=== PATIENT | male | born 1990 | race Caucasian/White ===

== ENCOUNTER → 2017-12-24 | Outpatient (CLI) | payer OTHER | LOC: M RAD 09:35 | DX: M79.604 Pain in right leg (principal) ==

== ENCOUNTER 2018-07-14 13:30 | Inpatient (IN) | payer OTHER ==
[~2018-07-14] VITALS: Ht 182.9 cm; Wt 113.6 kg
[2018-07-14] MEDS: MULTIVITAMINS/MINERALS THERAP 1 TAB PO SCH ×2 (09:00→20:55)
[2018-07-14] MEDS ORDERED: TRAZ-186 PO (14:12)
[2018-07-14] MEDS ORDERED: LORazepam 2 MG/ML VIAL (J2060) IV STA (14:12)
--- NOTE | 2018-07-14 14:29 | REP ---
Portable chest, 02:18 p.m., single frontal view: There are no comparisons. The lung muller are clear. The cardiac size is normal. The daryl, mediastinum, and skeletal structures are unremarkable. Impression: Negative portable chest. Electronically Signed by Jean Morris MD 07/14/2018 02:21 P
--- NOTE | 2018-07-14 14:29 | REP ---
CT of the brain without IV contrast for seizure: There are no comparisons. There is no subdural or epidural hematoma. There is no hemorrhage. There is no edema, mass effect or midline shift. Ventricles are normal size and midline. Stripe is unremarkable. The visualized paranasal sinuses are unremarkable. There is opacification of the left mastoids inferiorly, nonspecific in the absence of prior films, possibly congenital variant. There are no air-fluid levels in the mastoid air cells. Impression: There is no hemorrhage, acute infarct or mass. 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 There are no air-fluid levels. Correlate clinically. Electronically Signed by Jean Morris MD 07/14/2018 02:20 P
[2018-07-14 14:32] LABS: BASO # 0.1 10^3/uL (0.0-0.2); EOS # 0.2 10^3/uL (0.0-0.50); EOS % 1.7 % (0.0-3.0); HEMATOCRIT 43.4 % (42.0-52.0); HEMOGLOBIN 15.6 g/dl (13.5-17.5); LYMPH % 42.3 % (24.0-44.0); MEAN CORPUSCULAR HEMOGLOBIN 32.9 pg (27.0-33.0); MEAN CORPUSCULAR HGB CONC 35.9 g/dl (32.0-36.5); MEAN CORPUSCULAR VOLUME 91.6 fl (80.0-96.0); MONO % 10.2 % (0.0-5.0); NEUTROPHILS # 4.1 10^3/uL (1.8-7.7); NEUTROPHILS % 43.1 % (36.0-66.0); PLATELET COUNT, AUTOMATED 242 10^3/uL (150-450); RED BLOOD COUNT 4.74 10^6/uL (4.30-6.10); WHITE BLOOD COUNT 9.5 10^3/uL (4.0-10.0)
[2018-07-14 14:36] LABS: INR 1.07
[2018-07-14 14:37] LABS: PARTIAL THROMBOPLASTIN TIME 24.1 SECONDS (25.4-37.6)
[2018-07-14 14:45] LABS: ALT/SGPT 213 U/L (12-78); BILIRUBIN,DIRECT 0.9 MG/DL (0.0-0.2); BILIRUBIN,TOTAL 2.2 MG/DL (0.2-1.0); BLOOD UREA NITROGEN 12 MG/DL (7-18); CALCIUM LEVEL 9.5 MG/DL (8.5-10.1); CARBON DIOXIDE LEVEL 13 MEQ/L (21-32); CHLORIDE LEVEL 97 MEQ/L (98-107); CPK CREATINE PHOSPHOKINASE 233 U/L (39-308); CREATININE FOR GFR 2.47 MG/DL (0.70-1.30); ETHYL ALCOHOL (ETHANOL) < 0.003 % (0.000-0.010); GLOMERULAR FILTRATION RATE 33.1 (>60); GLUCOSE, FASTING 139 MG/DL (70-100); MB/CK RELATIVE INDEX 1.12 (< OR =4); POTASSIUM SERUM 3.9 MEQ/L (3.5-5.1); SODIUM LEVEL 133 MEQ/L (136-145); TOTAL PROTEIN 8.3 GM/DL (6.4-8.2); TROPONIN I < 0.02 NG/ML (< 0.10)
[2018-07-14 15:05] LABS: LIPASE 116 U/L (73-393)
[2018-07-14 15:27] LABS: AMPHETAMINES LEVEL URINE NEGATIVE (NEGATIVE); BARBITURATES URINE NEGATIVE (NEGATIVE); BENZODIAZEPINES URINE NEGATIVE (NEGATIVE); CANNABINOIDS URINE NEGATIVE (NEGATIVE); COCAINE METABOLITE URINE NEGATIVE (NEGATIVE); METHADONE URINE NEGATIVE (NEGATIVE); OPIATES URINE NEGATIVE (NEGATIVE); PHENCYCLIDINE URINE NEGATIVE (NEGATIVE)
--- NOTE | 2018-07-14 16:05 | ECGEPIP ---
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
[2018-07-14] MEDS ORDERED: NS 1,000 ML IV ONE (16:30)
--- NOTE | 2018-07-14 17:22 | REP ---
Abdominal right upper ultrasound for elevated liver function tests: There is a negative Hearn's sign. There is no cholelithiasis, gallbladder wall thickening or pericholecystic fluid. There is no intrahepatic or extrahepatic biliary duct dilatation, the common duct measures 5.9 mm in diameter. The hepatic parenchyma is echogenic compatible with hepato steatosis. There are no hepatic masses. The visualized pancreas is unremarkable. Much of the pancreas is obscured by bowel gas and body habitus. There is no right renal calculus, hydronephrosis or solid or cystic mass. The right kidney is normal size measuring 12.1 x 5.4 x 5.9 cm. There is no right upper quadrant free fluid. Impression: Hepato steatosis. Pancreas is obscured by bowel gas and body habitus. Otherwise, negative right upper quadrant ultrasound. Electronically Signed by Jean Morris MD 07/14/2018 05:13 P
[2018-07-14] MEDS ORDERED: MULTIVITAMINS/MINERALS THERAP 1 TAB PO ONE (17:45)
[2018-07-14] MEDS ORDERED: LORazepam 2 MG TAB PO PRN (17:45)
[2018-07-14] MEDS ORDERED: FOLIC ACID 1 MG TAB PO ONE (17:45)
[2018-07-14] MEDS ORDERED: THIAMINE 100 MG TAB PO ONE (17:45)
[2018-07-14] MEDS ORDERED: OXAZEPAM 10 MG CAP PO PRN (17:45)
--- NOTE | 2018-07-14 18:15 | HPEPDOC ---
General Date of Admission Jul 14, 2018 at 17:39 Chief Complaint The patient is a 27-year-old male who presented to the ER after he collapsed wh ile in the field doing work in the [employer]. History of Present Illness Patient is a 27-year-old male with no significant past medical history who presented to the ER after he collapsed in the field. 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 Patient reported at the work was not strenuous. . He denied any complaints prior to collapsing. Patient noted that he collapsed while outside and woke up in the ambulance. . He noted that there was an ambulance that was nearby already. Patient is unable to quantify how much time he was down. However, he approximates that this could be about 10 seconds. Upon awaking up. Patient did not have any incontinence of stool or urine. Denied any tongue biting. Denied any head trauma. He did report feeling slightly fatigued but denied any dizziness or any lightheadedness. Patient denies chest pain, shortness of breath, palpitations or cough. Denies any abdominal pain, constipation, diarrhea or discomfort with urination. Of note, patient has indicated that over the last several days hes been drinking several high energy drinks and has indicated that his urine was almost brown colored. . He subsequently consumed Pedialyte and a gallon of water. Patient denies any significant change in his weight and has noted that his appetite has been fairly decent. Patient has no prior history of any syncopal episodes. . He notes that he does consume alcohol, but only admits to drinking 2-3 beers on the weekend. Denies any other alcohol use, including hard liquor. Home Medications Scheduled PRN Trazodone HCl (Trazodone HCl) 50 Mg Tablet, 1 TAB PO QPM PRN for SLEEP, (Reported) Allergies Coded Allergies: No Known Allergies (Unverified , 07/14/18) Past Medical History Medical History No reported medical problems Patient was recently prescribed trazodone for insomnia; However, has not yet taken any. 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 Review of Systems Other systems 10 point review of systems complete, all negative otherwise stated in HPI Vital Signs - Vitals: BP 158/105, HR 109, RR 18, Sat 97%RA, Temp 97.8F - General: Lying in bed, No acute distress, Speaking in full sentences, AAOx3 - HEENT: NC, AT, PERRLA, EOMI - CVS: Tachycardic but regular, +S1S2 - Lungs: Fair air entry bilaterally, Clear to auscultation, No wheezing / rales / rhonchi - Abdomen: Soft, Non-distended, Non-tender, + Bowel sounds x 4 - Extremities: No lower extremity edema, No calf tenderness - Neuro: No focal motor or sensory deficit - Skin: No visible rashes Laboratory Data Labs 24H Laboratory Tests 2 07/14/18 13:36: Immature Granulocyte % (Auto) 1.7, White Blood Count 9.5, Red Blood Count 4.74, Hemoglobin 15.6, Hematocrit 43.4, Mean Corpuscular Volume 91.6, Mean Corpuscular Hemoglobin 32.9, Mean Corpuscular Hemoglobin Concent 35.9, Red Cell Distribution Width 12.9, Platelet Count 242, Neutrophils (%) (Auto) 43.1, Lymphocytes (%) (Auto) 42.3, Monocytes (%) (Auto) 10.2H, Eosinophils (%) (Auto) 1.7, Basophils (%) (Auto) 1.0, Neutrophils # (Auto) 4.1, Lymphocytes # (Auto) 4.0, Monocytes # (Auto) 1.0H, Eosinophils # (Auto) 0.2, Basophils # (Auto) 0.1, Nucleated Red Blood Cells % (auto) 0.0, Prothrombin Time 14.0, Prothromb Time International Ratio 1.07, Activated Partial Thromboplast Time 24.1L, Anion Gap 23H, Glomerular Filtration Rate 33.1L, Calcium Level 9.5, Aspartate Amino Transf (AST/SGOT) 373H, Alanine Aminotransferase (ALT/SGPT) 213H, Alkaline Phosphatase 133H, Total Bilirubin 2.2H, Direct Bilirubin 0.9H, Total Creatine Kinase 233, Creatine Kinase MB 3.0, Creatine Kinase MB Relative Index 1.12, Troponin I < 0.02, Total Protein 8.3H, Albumin 4.0, Albumin/Globulin Ratio 0.93L, Lipase 116, Thyroid Stimulating Hormone (TSH) 1.710, Ethyl Alcohol Level < 0.003 07/14/18 14:56: Urine Amphetamines Screen NEGATIVE, Urine Benzodiazepines Screen NEGATIVE, Urine Opiates Screen NEGATIVE, Urine Methadone Screen NEGATIVE, Urine Barbiturates Screen NEGATIVE, Urine Phencyclidine Screen NEGATIVE, Urine Cocaine Metabolite Screen NEGATIVE, Urine Cannabinoids Screen NEGATIVE 07/14/18 18:01: CBC/BMP Laboratory Tests 07/14/18 13:36 Red Blood Count 4.74, Mean Corpuscular Volume 91.6, Mean Corpuscular Hemoglobin 32.9, Mean Corpuscular Hemoglobin Concent 35.9, Red Cell Distribution Width 12.9, Neutrophils (%) (Auto) 43.1, Lymphocytes (%) (Auto) 42.3, Monocytes (%) (Auto) 10.2 H, Eosinophils (%) (Auto) 1.7, Basophils (%) (Auto) 1.0, Neutrophils # (Auto) 4.1, Lymphocytes # (Auto) 4.0, Monocytes # (Auto) 1.0 H, Eosinophils # (Auto) 0.2, Basophils # (Auto) 0.1 Plan / VTE VTE Prophylaxis Ordered?: Yes Plan Plan Syncope - possibly 2/2 neurologic etiology; possibly 2/2 vasovagal etiology; possibly 2/2 orthostatic hypotension - Patient was noted to activity outdoors. However, has indicated that this was not strenuous - Has also reported a recent episode of dark-colored urine that he tried to correct with hydration - Does not appear to have any post ictal; no loss of control of bowel or bladder and no tongue biting - Patient remains hemodynamically stable and afebrile emergency room - No evidence of rhabdomyolysis - EKG noted - CT head 07/14: There is no hemorrhage, acute infarct or mass. 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 There are no air-fluid levels. Correlate clinically. - Fall precautions / Seizure precautions - Will get EEG, echocardiogram and continue with telemetry monitoring - Will start IV fluid hydration Elevated liver enzymes - possibly 2/2 EtOH; possibly 2/2 infectious etiology - possibly 2/2 hepatitis - Physical does not reveal any abdominal tenderness - AST : ALT ratio of approximately 2 : 1; suggesting alcohol use - US abdomen 07/14: Hepato steatosis. Pancreas is obscured by bowel gas and body habitus. Otherwise, negative right upper quadrant ultrasound. - Will get hepatitis panel - Will continue to trend Possible alcohol withdrawal - Patient only admits to drinking 2-3 beers on the weekend - Lab work appears to be consistent with alcohol consumption - Fall precautions / Seizure precautions - Will start the patient on CIWA protocol - c/w Serax PRN Acute kidney injury - possibly 2/2 pre-renal etiology - Patient does not indicate any prior history of kidney problems - Cr on admission of 2.47; no baseline to compare against - Will check UA, Urine electrolytes and Osmolality - Will check Renal US - Will c/w IV fluid hydration Anion Gap Metabolic acidosis - Delta / Delta of ~1 - Will check lactic acid and ketone levels - c/w IV fluid hydration Hyponatremia (mild) - Likely 2/2 hypotonic hypovolemic etiology - c/w IV fluid hydration Alcohol abuse - Will start Multivitamins, Thiamine and Folate DVT prophylaxis - Will start Heparin JORDON ABDI MD Jul 14, 2018 18:15
[2018-07-14 18:34] LABS: CPK CREATINE PHOSPHOKINASE 239 U/L (39-308)
[2018-07-14 18:36] LABS: OSMOLALITY SERUM 286 MOSM/KG (275-295)
[2018-07-14 19:29] LABS: APPEARANCE, URINE CLEAR (CLEAR); BACTERIA, URINE AUTO NEGATIVE (NEGATIVE); BILIRUBIN, URINE AUTO NEGATIVE (NEGATIVE); BLOOD, URINE BLOOD NEGATIVE (NEGATIVE); COLOR, URINE YELLOW (YELLOW); GLUCOSE, URINE (UA) AUTO NEGATIVE (NEGATIVE); KETONE, URINE AUTO TRACE mg/dL (NEGATIVE); LEUKOCYTE ESTERASE, URINE AUTO NEGATIVE (NEGATIVE); NITRITE, URINE AUTO NEGATIVE (NEGATIVE); PROTEIN, URINE AUTO NEGATIVE (NEGATIVE); RBC, URINE AUTO 1 /HPF (0-3); SPECIFIC GRAVITY URINE AUTO 1.005 (1.002-1.035); SQUAMOUS EPITHELIAL CELL UR AU 0 /HPF (0-6); UROBILINOGEN, URINE AUTO 0.2 mg/dL (0.0-2.0); WBC, URINE AUTO 1 /HPF (0-3)
[2018-07-14 20:11] LABS: CREATININE,RANDOM URINE 73.8 MG/DL; SODIUM,RANDOM URINE 33 MEQ/L
[2018-07-14 20:15] LABS: OSMOLALITY URINE 199 MOSM/KG (500-800)
[2018-07-14] MEDS: NS 1,000 ML IV SCH (20:55)
[2018-07-14 21:00] VITALS: BP 139/83
[2018-07-14] MEDS: HEPARIN SOD (PORCINE) 5000 UNITS/ML VIAL SC SCH (21:01)
[2018-07-14 21:51] LABS: ACETONE/KETONE 12.54 MG/DL (<2.81)
[2018-07-15] VITALS (9 sets, daily range): BP systolic 137–167; BP diastolic 85–103
[2018-07-15] MEDS: NS 1,000 ML IV SCH ×3 (00:25→14:55)
[2018-07-15 05:54] LABS: HEPATITIS B SURFACE ANTIGEN NEGATIVE (NEGATIVE)
[2018-07-15 06:21] LABS: HEPATITIS B CORE ANTIBODY IGM NEGATIVE (NEGATIVE); HEPATITIS C VIRUS ABY INDEX 0.1 INDEX (<0.8)
[2018-07-15 06:24] LABS: HEPATITIS A ANTIBODY IGM NEGATIVE (NEGATIVE)
[2018-07-15] MEDS: HEPARIN SOD (PORCINE) 5000 UNITS/ML VIAL SC SCH ×2 (06:33→14:55)
--- NOTE | 2018-07-15 06:36 | REP ---
Clinical: Elevated renal function tests. Technique: Real time kaye scale ultrasound examination using curved array transducer. Findings: The bilateral kidneys are relatively normal in contour, size, echogenicity, and reniform shape without hydronephrosis, nephrolithiasis, cystic or renal mass lesion. Right kidney measures 14.8 x 5.9 x 6.1 cm. Left kidney measures 13.5 x 5.0 x 6.6 cm. Bladder is normal in appearance without wall thickening or mass lesion. Impression: Normal renal ultrasound. Electronically Signed by Liban Virk MD 07/15/2018 06:27 A
[2018-07-15 07:06] LABS: ALBUMIN 3.2 GM/DL (3.2-5.2); ALT/SGPT 152 U/L (12-78); BILIRUBIN,TOTAL 1.3 MG/DL (0.2-1.0); BLOOD UREA NITROGEN 8 MG/DL (7-18); CALCIUM LEVEL 7.8 MG/DL (8.5-10.1); CARBON DIOXIDE LEVEL 22 MEQ/L (21-32); CHLORIDE LEVEL 106 MEQ/L (98-107); CREATININE FOR GFR 1.45 MG/DL (0.70-1.30); GLOMERULAR FILTRATION RATE > 60.0 (>60); GLUCOSE, FASTING 94 MG/DL (70-100); MAGNESIUM LEVEL 2.2 MG/DL (1.8-2.4); POTASSIUM SERUM 3.1 MEQ/L (3.5-5.1); SODIUM LEVEL 137 MEQ/L (136-145); TOTAL PROTEIN 6.6 GM/DL (6.4-8.2)
[2018-07-15 07:18] LABS: BASO % 0.4 % (0.0-1.0); EOS # 0.1 10^3/uL (0.0-0.50); EOS % 1.2 % (0.0-3.0); HEMATOCRIT 34.4 % (42.0-52.0); LYMPH # 1.7 10^3/uL (1.5-6.5); LYMPH % 34.1 % (24.0-44.0); MEAN CORPUSCULAR HEMOGLOBIN 32.5 pg (27.0-33.0); MEAN CORPUSCULAR VOLUME 90.1 fl (80.0-96.0); MONO # 0.6 10^3/uL (0.0-0.8); MONO % 11.6 % (0.0-5.0); NEUTROPHILS # 2.7 10^3/uL (1.8-7.7); NEUTROPHILS % 52.1 % (36.0-66.0); PLATELET COUNT, AUTOMATED 145 10^3/uL (150-450); RED BLOOD COUNT 3.82 10^6/uL (4.30-6.10); WHITE BLOOD COUNT 5.1 10^3/uL (4.0-10.0)
[2018-07-15 07:30] LABS: HEMOGLOBIN 12.4 g/dl (13.5-17.5)
[2018-07-15] MEDS ORDERED: POTASSIUM CHLORIDE 10 MEQ SR TABLET PO ONE ×3 (08:00→11:00)
[2018-07-15] MEDS: MULTIVITAMINS/MINERALS THERAP 1 TAB PO SCH (08:47)
[2018-07-15] MEDS ORDERED: FOLIC ACID 1 MG TAB PO SCH (09:00)
[2018-07-15] MEDS ORDERED: THIAMINE 100 MG TAB PO SCH (09:00)
--- NOTE | 2018-07-15 15:28 | IPNPDOC ---
Text Note Date of Service The patient was seen on 07/15/18. NOTE Subjective: Patient is a 27-year-old male with no significant past medical history who presented to the ER after he collapsed in the field. 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 Patient expresses syncopal episode that was suspected to be a seizure was brought to the emergency room for further evaluation. In the ER, patient was found to have elevated liver enzymes and an elevated creatinine. Hospital service was called for further evaluation and treatment of a suspected syncope and abnormal lab work. Patient was seen and examined at the bedside. Patient denies chest pain, shortness of breath or palpitations. Denies nausea, vomiting or abdominal pain. Does any urinary discomfort. Objective: Vitals (See below) General: Lying in bed, no acute distress, comfortable, AAOx3 HEENT: NC, AT CVS: RRR, +S1S2 Lungs: Fair air entry b/l, -w/r/r Abdomen: Soft, ND, NT Extremities: - Edema, - Calf tenderness Assessment and plan: Syncope - possibly 2/2 neurologic etiology; possibly 2/2 vasovagal etiology; possibly 2/2 orthostatic hypotension - Did not appear to have any post ictal; no loss of control of bowel or bladder and no tongue biting - Patient remains hemodynamically stable and afebrile - No evidence of rhabdomyolysis - EKG noted - CT head 07/14: There is no hemorrhage, acute infarct or mass. 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 There are no air-fluid levels. Correlate clinically. - Fall precautions / Seizure precautions - EEG and ECHO are pending - c/w telemetry monitoring - c/w IV fluid hydration Elevated liver enzymes - possibly 2/2 EtOH; possibly 2/2 infectious etiology - possibly 2/2 hepatitis - Labs are improving - Physical does not reveal any abdominal tenderness - AST : ALT ratio of approximately 2 : 1; suggesting alcohol use - US abdomen 07/14: Hepato steatosis. Pancreas is obscured by bowel gas and body habitus. Otherwise, negative right upper quadrant ultrasound. - Hepatitis panel negative - Will continue to follow Possible alcohol withdrawal - Patient only admits to drinking 2-3 beers on the weekend - Lab work appears to be consistent with alcohol consumption - Fall precautions / Seizure precautions - c/w CIWA protocol - c/w Serax PRN HTN - BP moderately elevated - Will start Amlodipine today Acute kidney injury - possibly 2/2 pre-renal etiology - Patient does not indicate any prior history of kidney problems - Cr has been improving - UA negative - Renal US 07/14: Normal renal ultrasound. - c/w IV fluid hydration s/p Anion Gap Metabolic acidosis s/p Hyponatremia (mild) Suspected Alcohol abuse - c/w Multivitamins, Thiamine and Folate Hypokalemia - Will supplement DVT prophylaxis - c/w Heparin Disposition: - Will get PT evaluation VS,Fishbone, I+O VS, Fishbone, I+O Laboratory Tests 07/15/18 06:26 Red Blood Count 3.82 L, Mean Corpuscular Volume 90.1, Mean Corpuscular Hemoglobin 32.5, Mean Corpuscular Hemoglobin Concent 36.0, Red Cell Distribution Width 13.2, Neutrophils (%) (Auto) 52.1, Lymphocytes (%) (Auto) 34.1, Monocytes (%) (Auto) 11.6 H, Eosinophils (%) (Auto) 1.2, Basophils (%) (Auto) 0.4, Neutrophils # (Auto) 2.7, Lymphocytes # (Auto) 1.7, Monocytes # (Auto) 0.6, Eosinophils # (Auto) 0.1, Basophils # (Auto) 0.0, Calcium Level 7.8 #L, Aspartate Amino Transf (AST/SGOT) 213 H, Alanine Aminotransferase (ALT/SGPT) 152 H, Alkaline Phosphatase 111, Total Bilirubin 1.3 H, Total Protein 6.6 #, Albumin 3.2 Vital Signs Date Time Temp Pulse Resp B/P (MAP) Pulse Ox O2 Delivery O2 Flow Rate FiO2 07/15/18 13:49 97.2 75 18 162/103 (122) 98 07/14/18 15:45 Room Air I&O- Last 24 Hours up to 6 AM 07/15/18 06:00 Intake Total 8232 ml Output Total 3650 ml Balance 4582 ml JORDON ABDI MD Jul 15, 2018 15:28
[2018-07-15] MEDS ORDERED: amLODIPine 5 MG TAB PO ONE (16:00)
--- NOTE | 2018-07-15 20:05 | ECHO ---
DATE OF PROCEDURE: 07/15/2018 Date of : 1990 Age: 27 Gender: Male Height: 72 inches Weight: 251 pounds Body surface area: 2.34 meters squared Inpatient: U, room 3211 REFERRING PHYSICIAN: Dr. Pietro Little INDICATION: Syncope. MEASUREMENTS: 2D measurements: RV: 4.0 cm LV: 5.1 cm Septum: 1.1 cm Posterior wall: 1.1 cm Aortic root: 3.3 cm LA: 3.6 cm LVEF: 65% Doppler measurements: AV: 1.3 meters per second LVOT: 1.0 meters per second LVOT diameter: 2.3 cm MV-E: 110, A: 64, EA ratio: 1.7 Early mitral deceleration time: 180 milliseconds E prime: 10.7, A prime: 9, E/E prime ratio: 10.3 PV: 0.8 meters per second Pulmonary artery acceleration time: 139 milliseconds RVSP: 29 mmHg IVC: 1.9 cm COMMENTS: Sinus bradycardia without intraventricular conduction disturbance. M-mode and two-dimensional echocardiography was performed with pulsed, continuous wave, color flow and tissue Doppler studies. Normal left ventricular size and wall thickness with normal wall motion. Normal left atrial size with normal Doppler assessment of left ventricular (LV) diastolic function and estimated mean left atrial pressure. Right heart chamber sizes upper limits of normal with normal wall motion and estimated pulmonary arterial pressure upper limits of normal. Normal inferior vena cava (IVC) size and collapse against an elevated central venous pressure. Normal appearing and functioning valvular structures. Normal aortic root size. No apparent intracardiac mass or pericardial effusion. Unable to account for the patient's syncopal spell on the basis of a functional or structural cardiac abnormality.
[2018-07-15] MEDS ORDERED: APAP325T4 PO (23:50)
[2018-07-15] MEDS ORDERED: CYCL10TA PO (23:50)
[2018-07-16] MEDS ORDERED: amLODIPine 5 MG TAB PO SCH (09:00)
--- NOTE | 2018-08-25 16:48 | DS.PDOC ---
Discharge Summary General Date of Admission Jul 14, 2018 at 17:39 Date of Discharge 07/15/2018 Discharge Summary PROCEDURES PERFORMED DURING STAY: [None]. ADMITTING DIAGNOSES / DISCHARGE DIAGNOSES: Syncope - possibly 2/2 neurologic etiology; possibly 2/2 vasovagal etiology; possibly 2/2 orthostatic hypotension Elevated liver enzymes - possibly 2/2 EtOH; possibly 2/2 infectious etiology - possibly 2/2 hepatitis Possible alcohol withdrawal HTN Acute kidney injury - possibly 2/2 pre-renal etiology s/p Anion Gap Metabolic acidosis s/p Hyponatremia (mild) Suspected Alcohol abuse Hypokalemia DVT prophylaxis COMPLICATIONS/CHIEF COMPLAINT: Possible seizure / dehydration HISTORY OF PRESENT ILLNESS / HOSPITAL COURSE: Patient is a 27-year-old male with no significant past medical history who presented to the ER after he collapsed in the field. 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 Patient expresses syncopal episode that was suspected to be a seizure was brought to the emergency room for further evaluation. In the ER, patient was found to have elevated liver enzymes and an elevated creatinine. Hospital service was called for further evaluation and treatment of a suspected syncope and abnormal lab work. She was admitted to the hospital on 08/13/2018 for possible seizure and alcohol withdrawal symptoms. The emergency room he was found to have acute kidney injury. Patient was admitted to the progressive care unit with telemetry monitoring. Patient was found to have left the floor without advising staff. Code terry was called and patient eventually returned back to the hospital. He had indicated that he had left the hospital to get Gatorade and Water. Patient's discharge was considered as LEAVING AGAINST MEDICAL ADVICE. DISCHARGE MEDICATIONS: Please see below. ALLERGIES: Please see below. PHYSICAL EXAMINATION ON DISCHARGE: Not complete at that time LABORATORY DATA: Please see below. DISPOSITION: Left Against Medical Advice / Elopement Discharge Medications Scheduled Amlodipine Besylate (Amlodipine Besylate) 5 Mg Tablet, 5 MG PO DAILY Folic Acid (Folic Acid) 1 Mg Tablet, 1 MG PO DAILY Multivitamin (Multivitamins) 1 Each Capsule, 1 CAP PO DAILY Thiamine Hcl (Vitamin B-1) 100 Mg Tablet, 100 MG PO DAILY Scheduled PRN Acetaminophen (Acetaminophen) 325 Mg Tablet, 650 MG PO Q4H PRN for PAIN, (Reported) Allergies Coded Allergies: No Known Allergies (Unverified , 07/14/18) JORDON ABDI MD August 25, 2018 16:48
== END 2018-07-15 21:33 | disposition left against medical advice (07) | DRG 683 ==
LOC: M ED 13:30 → EDBD 13:30 → M ED INP 17:39 → M PCU 07-15 06:48
PROVIDERS: ADMIT Internal Medicine; ATTEND Internal Medicine
DX: N17.9 Acute kidney failure, unspecified (principal); E87.1 Hypo-osmolality and hyponatremia; E87.2 Acidosis; F10.239 Alcohol dependence with withdrawal, unspecified; R55 Syncope and collapse; I95.1 Orthostatic hypotension; I10 Essential (primary) hypertension; E87.6 Hypokalemia; K75.9 Inflammatory liver disease, unspecified; R74.8 Abnormal levels of other serum enzymes

== ENCOUNTER 2018-07-15 21:52 | Inpatient (IN) | payer OTHER ==
[~2018-07-15] VITALS: Ht 182.9 cm; Wt 113.6 kg
[~2018-07-15 21:52] MED LIST: TRAZ-186 PO
[2018-07-15 22:41] LABS: HEMATOCRIT 38.1 % (42.0-52.0); HEMOGLOBIN 13.3 g/dl (13.5-17.5); MEAN CORPUSCULAR HEMOGLOBIN 32.6 pg (27.0-33.0); MEAN CORPUSCULAR HGB CONC 34.9 g/dl (32.0-36.5); MEAN CORPUSCULAR VOLUME 93.4 fl (80.0-96.0); PLATELET COUNT, AUTOMATED 161 10^3/uL (150-450); RED BLOOD COUNT 4.08 10^6/uL (4.30-6.10); WHITE BLOOD COUNT 6.1 10^3/uL (4.0-10.0)
[2018-07-15 23:19] LABS: ACETAMINOPHEN LEVEL < 2.0 UG/ML (10.0-30.0); ALBUMIN 3.7 GM/DL (3.2-5.2); ALT/SGPT 174 U/L (12-78); BILIRUBIN,DIRECT 0.4 MG/DL (0.0-0.2); BILIRUBIN,TOTAL 0.9 MG/DL (0.2-1.0); BLOOD UREA NITROGEN 9 MG/DL (7-18); CALCIUM LEVEL 8.3 MG/DL (8.5-10.1); CARBON DIOXIDE LEVEL 27 MEQ/L (21-32); CHLORIDE LEVEL 105 MEQ/L (98-107); CREATININE FOR GFR 1.24 MG/DL (0.70-1.30); ETHYL ALCOHOL (ETHANOL) < 0.003 % (0.000-0.010); GLOMERULAR FILTRATION RATE > 60.0 (>60); GLUCOSE, FASTING 108 MG/DL (70-100); POTASSIUM SERUM 4.1 MEQ/L (3.5-5.1); SALICYLATE LEVEL < 1.7 MG/DL (5.0-30.0); SODIUM LEVEL 141 MEQ/L (136-145); TOTAL PROTEIN 7.2 GM/DL (6.4-8.2)
[2018-07-15] MEDS ORDERED: CYCL10TA PO (23:50)
[2018-07-15] MEDS ORDERED: APAP325T4 PO (23:50)
--- NOTE | 2018-07-16 00:47 | HPEPDOC ---
[facility] Medical History & Physical Date of Admission Jul 16, 2018 History and Physical CHIEF COMPLAINT: Readmission after left AMA 07/15/18 HISTORY OF PRESENT ILLNESS: Original HPI from 07/14/18, day of admission: Patient is a 27-year-old male with no significant past medical history who presented to the ER after he collapsed in the field. 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 Patient reported at the work was not strenuous. . He denied any complaints prior to collapsing. Patient noted that he collapsed while outside and woke up in the ambulance. . He noted that there was an ambulance that was nearby already. Patient is unable to quantify how much time he was down. However, he approximates that this could be about 10 seconds. Upon awaking up. Patient did not have any incontinence of stool or urine. Denied any tongue biting. Denied any head trauma. He did report feeling slightly fatigued but denied any dizziness or any lightheadedness. Patient denies chest pain, shortness of breath, palpitations or cough. Denies any abdominal pain, constipation, diarrhea or discomfort with urination. Of note, patient has indicated that over the last several days hes been drinking several high energy drinks and has indicated that his urine was almost brown colored. . He subsequently consumed Pedialyte and a gallon of water. Patient denies any significant change in his weight and has noted that his appetite has been fairly decent. Patient has no prior history of any syncopal episodes. . He notes that he does consume alcohol, but only admits to drinking 2-3 beers on the weekend. Denies any other alcohol use, including hard liquor. HPI for readmission: Around 1999, MAUREEN MARY was called as patient eloped from the PCU, claiming he wasn't getting enough water to drink and he wanted to go to a nearby gas station to get water (and, we later found out, chewing tobacco). He removed his IV, put on his clothes and he left. He was later found in the cancer treatment center parking lot and was brought to the Behavioral Health Unit of the ED. On my interview, he was accompanied by his staff sergeant and both were very anxious/angry. He saw nothing wrong with what he did. He is still willing to get admitted for further medical workup but is unwilling to stay very long. PAST MEDICAL HISTORY: 1. insomnia PAST SURGICAL HISTORY: 1. [place] teeth extraction 11 years ago 2. 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 REVIEW OF SYSTEMS: 10 point review of systems complete, all negative otherwise stated in HPI HOME MEDICATIONS: Please see below. PHYSICAL EXAMINATION: VITAL SIGNS: see below General: standing and refusing to sit down for discussing/exam, No acute distress, Speaking in full sentences, AAOx3 HEENT: NC, AT, PERRLA, EOMI CVS: Tachycardic but regular, +S1S2 Lungs: Fair air entry bilaterally, Clear to auscultation, No wheezing / rales / rhonchi Abdomen: Soft, Non-distended, Non-tender, + Bowel sounds x 4 Extremities: No lower extremity edema, No calf tenderness Neuro: No focal motor or sensory deficit Skin: No visible rashes LABORATORY DATA: See below. IMAGING: ECHO: Sinus bradycardia without intraventricular conduction disturbance. M-mode and two-dimensional echocardiography was performed with pulsed, continuous wave, color flow and tissue Doppler studies. Normal left ventricular size and wall thickness with normal wall motion. Normal left atrial size with normal Doppler assessment of left ventricular (LV) diastolic function and estimated mean left atrial pressure. Right heart chamber sizes upper limits of normal with normal wall motion and estimated pulmonary arterial pressure upper limits of normal. Normal inferior vena cava (IVC) size and collapse against an elevated central venous pressure. Normal appearing and functioning valvular structures. Normal aortic root size. No apparent intracardiac mass or pericardial effusion. Unable to account for the patient's syncopal spell on the basis of a functional or structural cardiac abnormality. RENAL US: Normal renal ultrasound. MICROBIOLOGY: Please see below. 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 . PLAN: Syncope - possibly 2/2 neurologic etiology; possibly 2/2 vasovagal etiology; possibly 2/2 orthostatic hypotension - Patient was noted to activity outdoors. However, has indicated that this was not strenuous - Has also reported a recent episode of dark-colored urine that he tried to correct with hydration - Does not appear to have any post ictal; no loss of control of bowel or bladder and no tongue biting - Patient remains hemodynamically stable and afebrile emergency room - No evidence of rhabdomyolysis - EKG noted - Fall precautions / Seizure precautions - EEG, Echo WNL - Will continue IV fluid hydration Elevated liver enzymes - possibly 2/2 EtOH; possibly 2/2 infectious etiology - possibly 2/2 hepatitis; Enzymes slightly improved this AM - Physical does not reveal any abdominal tenderness - Liver and renal US negative for any abnormality - AST : ALT ratio of approximately 2 : 1; suggesting alcohol use - Hepatitis panel negative - Will continue to trend Possible alcohol withdrawal - Patient only admits to drinking 2-3 beers on the weekend - Lab work appears to be consistent with alcohol consumption - Fall precautions / Seizure precautions - Will start the patient on CIWA protocol - c/w Serax PRN Acute kidney injury - possibly 2/2 pre-renal etiology - Patient does not indicate any prior history of kidney problems - Cr on admission of 2.47; improved to 1.24 - UA WNL - Will c/w IV fluid hydration Hyponatremia (mild) - resolved Alcohol abuse - Will start Multivitamins, Thiamine and Folate DVT prophylaxis - Will start Heparin Vital Signs Vital Signs Date Time Temp Pulse Resp B/P (MAP) Pulse Ox O2 Delivery O2 Flow Rate FiO2 07/15/18 22:09 07/15/18 21:52 97.5 82 18 97 Room Air Laboratory Data Labs 24H Laboratory Tests 2 07/15/18 22:20: Nucleated Red Blood Cells % (auto) 0.0, Anion Gap 9, Glomerular Filtration Rate > 60.0, Calcium Level 8.3L, Aspartate Amino Transf (AST/SGOT) 225H, Alanine Aminotransferase (ALT/SGPT) 174H, Alkaline Phosphatase 127H, Total Bilirubin 0.9, Direct Bilirubin 0.4H, Total Protein 7.2, Albumin 3.7, Albumin/Globulin Ratio 1.06, Thyroid Stimulating Hormone (TSH) 2.780, Salicylates Level < 1.7L, Acetaminophen Level < 2.0L, Ethyl Alcohol Level < 0.003 CBC/BMP Laboratory Tests 07/15/18 22:20 Red Blood Count 4.08 L, Mean Corpuscular Volume 93.4, Mean Corpuscular Hemoglobin 32.6, Mean Corpuscular Hemoglobin Concent 34.9, Red Cell Distribution Width 13.5 Home Medications Scheduled Amlodipine Besylate (Amlodipine Besylate) 5 Mg Tablet, 5 MG PO DAILY Folic Acid (Folic Acid) 1 Mg Tablet, 1 MG PO DAILY Multivitamin (Multivitamins) 1 Each Capsule, 1 CAP PO DAILY Thiamine Hcl (Vitamin B-1) 100 Mg Tablet, 100 MG PO DAILY Scheduled PRN Acetaminophen (Acetaminophen) 325 Mg Tablet, 650 MG PO Q4H PRN for PAIN Allergies Coded Allergies: No Known Allergies (Unverified , 07/14/18) GME ATTESTATION GME ATTESTATION My faculty preceptor for this patient encounter was physically present during the encounter and was fully available. All aspects of the patient interview, examination, medical decision making process, and medical care plan development were reviewed and approved by the faculty preceptor. The faculty preceptor is aware and concurs with the plan as stated in the body of this note and will attest to such by his/her cosignature. ATTENDING NOTE I have reviewed the residents note and have personally examined the patient. I agree with the Residents physical examination and assessment and plan. Patient had left the hospital to go to the nearby gas station to get some food and drink and a code USMAN was called and patient was marked absconded. He however came back to the floor after he got the food and so was sent back to the ED. in the ed it was felt that his medical work up was not yet completed and his LFTs were still abnormal though his renal failure had improved so he was placed for readmission. Will get an MRI of brain with and without contrast for new onset seizure for which he was originally admitted CHELSEA CARDONA MD Jul 16, 2018 00:47 SHAHAB QUIJANO MD Jul 17, 2018 20:09
[2018-07-16 00:51] LABS: AMPHETAMINES LEVEL URINE NEGATIVE (NEGATIVE); BARBITURATES URINE NEGATIVE (NEGATIVE); BENZODIAZEPINES URINE NEGATIVE (NEGATIVE); CANNABINOIDS URINE NEGATIVE (NEGATIVE); COCAINE METABOLITE URINE NEGATIVE (NEGATIVE); METHADONE URINE NEGATIVE (NEGATIVE); OPIATES URINE NEGATIVE (NEGATIVE); PHENCYCLIDINE URINE NEGATIVE (NEGATIVE)
[2018-07-16 00:55] VITALS: BP 163/95
[2018-07-16] MEDS ORDERED: ACETAMINOPHEN TAB 650MG DOSE (2X325MG) PO PRN (01:00)
[2018-07-16] MEDS ORDERED: traZODone 50 MG TAB PO PRN (01:00)
[2018-07-16] MEDS ORDERED: CYCLOBENZAPRINE 10 MG TAB PO PRN (01:00)
[2018-07-16 06:00] VITALS: BP 142/62
--- NOTE | 2018-07-16 12:26 | REP ---
MRI brain without and with IV gadolinium: History: New onset seizures. Comparison CT study of the brain is from July 14, 2018. Technique: Axial, coronal, and sagittal imaging planes are utilized for T1 and T2-weighted scans. Sequences include spin-echo, fast spin echo, FLAIR, and diffusion weighted sequences. Gadolinium enhancement dose is 20 ml of intravenous ProHance. MRI findings: Craniocervical junction and upper cervical cord are normal in appearance. There is no bony calvarial lesion. There is moderate mucosal thickening affecting the left maxillary sinus and mild mucosal thickening affecting the right maxillary sinus. Otherwise the paranasal sinuses appear to be clear. Deep facial and skull base soft tissues are unremarkable. No intraorbital abnormality is seen. There is no evidence of intracranial hemorrhage. No mass or infarction is seen. Diffusion weighted scans show no evidence to suggest acute ischemia. No temporal lobe or hippocampal lesion is seen on T2-weighted coronal images. On FLAIR and turbo spin echo T2-weighted scans there are is one nonspecific periventricular white matter hyperintensity in the left frontal lobe which is nonspecific. No other white matter abnormality is seen. On postcontrast images enhancement is seen in normal vasculature. No abnormal gadolinium enhancement is appreciated. Impression: No acute intracranial lesion. Electronically Signed by Denilson Rodriguez MD 07/16/2018 02:30 P
--- NOTE | 2018-07-16 13:05 | IPNPDOC ---
Text Note Date of Service The patient was seen on 07/16/18. NOTE Subjective: Patient is a 27-year-old male with no significant past medical history who presented to the ER after he collapsed in the field. 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 Patient expresses syncopal episode that was suspected to be a seizure was brought to the emergency room for further evaluation. In the ER, patient was found to have elevated liver enzymes and an elevated creatinine. Hospital service was called for further evaluation and treatment of a suspected syncope and abnormal lab work. On 07/15/2018 patient had left the hospital without advising any staff. Code USMAN was called and patient was ultimately found in the [facility] unit parking lot. Patient had reported that he left the hospital because he was searching for water and something to drink. He blamed nursing staff and hospital because there is no prevention of him leaving. Patient return to the hospital and thought nothing that he did was wrong. He was readmitted back to medical surgical floor with telemetry monitoring. Patient was seen and examined at the bedside. Patient has reported some problems with blood draws in the morning, but he denies chest pain, shortness of breath or palpitations. Denies nausea, vomiting, abdominal pain, constipation, diarrhea or discomfort with urination. Objective: Vitals (See below) General: Lying in bed, no acute distress, comfortable, AAOx3 HEENT: NC, AT CVS: RRR, +S1S2 Lungs: Fair air entry b/l, -w/r/r Abdomen: Soft, ND, NT Extremities: - Edema, - Calf tenderness Assessment and plan: Syncope - possibly 2/2 neurologic etiology; possibly 2/2 vasovagal etiology; possibly 2/2 orthostatic hypotension - Did not appear to have any post ictal; no loss of control of bowel or bladder and no tongue biting - Patient remains hemodynamically stable and afebrile - No evidence of rhabdomyolysis - EKG noted - Initial UDS 07/16: Negative; Comprehensive UDS 07/16: Pending - CT head 07/14: There is no hemorrhage, acute infarct or mass. 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 There are no air-fluid levels. Correlate clinically. - MRI brain 07/16: No acute intracranial lesion. - ECHO 07/15: normal - EEG complete; report pending - Fall precautions / Seizure precautions - c/w telemetry monitoring - s/p IV fluid hydration Elevated liver enzymes - possibly 2/2 EtOH; possibly 2/2 infectious etiology - possibly 2/2 hepatitis - Labs are improving - Physical does not reveal any abdominal tenderness - AST : ALT ratio of approximately 2 : 1; suggesting alcohol use - US abdomen 07/14: Hepato steatosis. Pancreas is obscured by bowel gas and body habitus. Otherwise, negative right upper quadrant ultrasound. - Hepatitis panel negative - Will continue to follow Possible alcohol withdrawal - Patient only admits to drinking 2-3 beers on the weekend - Lab work appears to be consistent with alcohol consumption - Restart Seizure precautions - s/p CIWA protocol and Serax PRN HTN - BP moderately elevated - Will restart Amlodipine today s/p Acute kidney injury - possibly 2/2 pre-renal etiology - Patient does not indicate any prior history of kidney problems - Cr has been improving - UA negative - Renal US 07/14: Normal renal ultrasound. - s/p IV fluid hydration s/p Anion Gap Metabolic acidosis s/p Hyponatremia (mild) Suspected Alcohol abuse - Will restart Multivitamins, Thiamine and Folate s/p Hypokalemia DVT prophylaxis - c/w TEDs/Sequentials Disposition: - PT evaluation 07/15: cleared VS,Fishbone, I+O VS, Fishbone, I+O Laboratory Tests 07/15/18 22:20 Red Blood Count 4.08 L, Mean Corpuscular Volume 93.4, Mean Corpuscular Hemoglobin 32.6, Mean Corpuscular Hemoglobin Concent 34.9, Red Cell Distribution Width 13.5 Vital Signs Date Time Temp Pulse Resp B/P (MAP) Pulse Ox O2 Delivery O2 Flow Rate FiO2 07/16/18 06:00 97.5 68 20 142/62 (88) 98 07/16/18 00:34 Room Air I&O- Last 24 Hours up to 6 AM 07/16/18 06:00 Intake Total 150 ml Output Total 350 ml Balance -200 ml JORDON ABDI MD Jul 16, 2018 13:05
[2018-07-16] MEDS ORDERED: amLODIPine 5 MG TAB PO ONE (13:15)
[2018-07-16 14:00] VITALS: BP 142/98
[2018-07-16] MEDS: FOLIC ACID 1 MG TAB PO SCH (14:06)
[2018-07-16] MEDS: MULTIVITAMINS/MINERALS THERAP 1 TAB PO SCH (14:06)
[2018-07-16] MEDS: THIAMINE 100 MG TAB PO SCH (14:06)
[2018-07-16 22:00] VITALS: BP 149/99
[2018-07-17 05:25] VITALS: BP 131/89
[2018-07-17 05:37] VITALS: BP 131/89
[2018-07-17 06:30] LABS: BASO # 0.1 10^3/uL (0.0-0.2); BASO % 1.2 % (0.0-1.0); EOS # 0.2 10^3/uL (0.0-0.50); EOS % 2.9 % (0.0-3.0); HEMATOCRIT 37.6 % (42.0-52.0); HEMOGLOBIN 13.1 g/dl (13.5-17.5); LYMPH # 1.9 10^3/uL (1.5-6.5); LYMPH % 36.9 % (24.0-44.0); MEAN CORPUSCULAR HEMOGLOBIN 32.4 pg (27.0-33.0); MEAN CORPUSCULAR HGB CONC 34.8 g/dl (32.0-36.5); MEAN CORPUSCULAR VOLUME 93.1 fl (80.0-96.0); MONO # 0.4 10^3/uL (0.0-0.8); MONO % 7.5 % (0.0-5.0); NEUTROPHILS # 2.6 10^3/uL (1.8-7.7); NEUTROPHILS % 50.2 % (36.0-66.0); PLATELET COUNT, AUTOMATED 163 10^3/uL (150-450); RED BLOOD COUNT 4.04 10^6/uL (4.30-6.10); WHITE BLOOD COUNT 5.2 10^3/uL (4.0-10.0)
[2018-07-17 07:03] LABS: ALBUMIN 3.2 GM/DL (3.2-5.2); ALT/SGPT 203 U/L (12-78); BLOOD UREA NITROGEN 8 MG/DL (7-18); CALCIUM LEVEL 8.4 MG/DL (8.5-10.1); CARBON DIOXIDE LEVEL 26 MEQ/L (21-32); CHLORIDE LEVEL 106 MEQ/L (98-107); CREATININE FOR GFR 1.15 MG/DL (0.70-1.30); GLOMERULAR FILTRATION RATE > 60.0 (>60); GLUCOSE, FASTING 85 MG/DL (70-100); POTASSIUM SERUM 3.5 MEQ/L (3.5-5.1); SODIUM LEVEL 142 MEQ/L (136-145); TOTAL PROTEIN 6.8 GM/DL (6.4-8.2)
[2018-07-17] MEDS: THIAMINE 100 MG TAB PO SCH (08:59)
[2018-07-17] MEDS: MULTIVITAMINS/MINERALS THERAP 1 TAB PO SCH (08:59)
[2018-07-17 09:00] VITALS: BP 146/76
[2018-07-17] MEDS ORDERED: amLODIPine 5 MG TAB PO SCH (09:00)
[2018-07-17] MEDS: FOLIC ACID 1 MG TAB PO SCH (09:00)
[2018-07-17 09:03] VITALS: BP 146/76
[2018-07-17] MEDS ORDERED: FOLI1TAB11 PO (10:19)
[2018-07-17] MEDS ORDERED: AMLO5TAB6 PO (10:19)
[2018-07-17] MEDS ORDERED: THIA100TA PO (10:19)
[2018-07-17] MEDS ORDERED: MULTCAP PO (10:19)
--- NOTE | 2018-07-17 10:37 | DS.PDOC ---
Discharge Summary General Date of Admission Jul 16, 2018 at 00:05 Date of Discharge 07/17/2018 Discharge Summary PROCEDURES PERFORMED DURING STAY: [None]. ADMITTING DIAGNOSES / DISCHARGE DIAGNOSES: Syncope - possibly 2/2 vasovagal etiology; possibly 2/2 orthostatic hypotension; less likely 2/2 neurologic etiology Elevated liver enzymes - possibly 2/2 EtOH; possibly 2/2 infectious etiology - possibly 2/2 hepatitis s/p Possible alcohol withdrawal HTN s/p Acute kidney injury - possibly 2/2 pre-renal etiology s/p Anion Gap Metabolic acidosis s/p Hyponatremia (mild) Suspected Alcohol abuse s/p Hypokalemia DVT prophylaxis COMPLICATIONS/CHIEF COMPLAINT: Syncope HISTORY OF PRESENT ILLNESS: Patient is a 27-year-old male with no significant past medical history who presented to the ER after he collapsed in the field. 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 Patient expresses syncopal episode that was suspected to be a seizure was brought to the emergency room for further evaluation. In the ER, patient was found to have elevated liver enzymes and an elevated creatinine. Hospital service was called for further evaluation and treatment of a suspected syncope and abnormal lab work. On 07/15/2018 patient had left the hospital without advising any staff. Code USMAN was called and patient was ultimately found in the behavioral health unit parking lot. Patient had reported that he left the hospital because he was searching for water and something to drink. He blamed nursing staff and hospital because there is no prevention of him leaving. Patient return to the hospital and thought nothing that he did was wrong. He was readmitted back to medical surgical floor with telemetry monitoring. HOSPITAL COURSE: Syncope - possibly 2/2 vasovagal etiology; possibly 2/2 orthostatic hypotension; less likely 2/2 neurologic etiology - Did not appear to have any post ictal; no loss of control of bowel or bladder and no tongue biting - Patient remains hemodynamically stable and afebrile - No evidence of rhabdomyolysis - EKG noted - Initial UDS 07/16: Negative; Comprehensive UDS 07/16: Pending - CT head 07/14: There is no hemorrhage, acute infarct or mass. 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 There are no air-fluid levels. Correlate clinically. - MRI brain 07/16: No acute intracranial lesion. - ECHO 07/15: normal - EEG complete; report pending - Fall precautions / Seizure precautions - c/w telemetry monitoring - s/p IV fluid hydration - We'll have outpatient follow-up with primary care provider at [facility] [place] Elevated liver enzymes - possibly 2/2 EtOH; possibly 2/2 infectious etiology - possibly 2/2 hepatitis - Labs are improving - Physical does not reveal any abdominal tenderness - AST : ALT ratio of approximately 2 : 1; suggesting alcohol use - US abdomen 07/14: Hepato steatosis. Pancreas is obscured by bowel gas and body habitus. Otherwise, negative right upper quadrant ultrasound. - Hepatitis panel negative - Strongly advised alcohol cessation - We'll have outpatient follow-up with primary Provider at [facility] [place] s/p Possible alcohol withdrawal - Patient only admits to drinking 2-3 beers on the weekend - Lab work appears to be consistent with alcohol consumption - Restart Seizure precautions - s/p CIWA protocol and Serax PRN HTN - BP better controlled today - c/w Amlodipine on discharge s/p Acute kidney injury - possibly 2/2 pre-renal etiology - Patient does not indicate any prior history of kidney problems - Cr has been improving - UA negative - Renal US 07/14: Normal renal ultrasound. - s/p IV fluid hydration s/p Anion Gap Metabolic acidosis s/p Hyponatremia (mild) Suspected Alcohol abuse - c/w Multivitamins, Thiamine and Folate s/p Hypokalemia DVT prophylaxis - c/w TEDs/Sequentials DISCHARGE MEDICATIONS: Please see below. ALLERGIES: Please see below. PHYSICAL EXAMINATION ON DISCHARGE: Vitals (See below) General: Lying in bed, no acute distress, comfortable, AAOx3 HEENT: NC, AT CVS: RRR, +S1S2 Lungs: Air entry is fair bilaterally without evidence of wheezing, rhonchi, rales Abdomen: Abdomen soft, without any distention or tenderness Extremities: No evidence of lower extremity edema, - Calf tenderness LABORATORY DATA: Please see below. ACTIVITY: [As tolerated]. DISCHARGE PLAN: Follow up with primary care provider at [facility] within 7 days Remain compliant with treatment plan and medications Return to the ER if you experience any problems DISPOSITION: Home DISCHARGE CONDITION: [Stable]. TIME SPENT ON DISCHARGE: Greater than [35] minutes. Vital Signs/I&Os Vital Signs Date Time Temp Pulse Resp B/P (MAP) Pulse Ox O2 Delivery O2 Flow Rate FiO2 07/17/18 09:03 54 146/76 07/17/18 05:37 97.7 18 97 07/16/18 00:34 Room Air l I&O- Last 24 Hours up to 6 AM 07/17/18 06:00 Intake Total 5110 ml Output Total 0 ml Balance 5110 ml Laboratory Data Labs 24H Laboratory Tests 2 07/17/18 05:14: Immature Granulocyte % (Auto) 1.3, White Blood Count 5.2, Red Blood Count 4.04L, Hemoglobin 13.1L, Hematocrit 37.6L, Mean Corpuscular Volume 93.1, Mean Corpuscular Hemoglobin 32.4, Mean Corpuscular Hemoglobin Concent 34.8, Red Cell Distribution Width 13.5, Platelet Count 163, Neutrophils (%) (Auto) 50.2, Lymphocytes (%) (Auto) 36.9, Monocytes (%) (Auto) 7.5H, Eosinophils (%) (Auto) 2.9, Basophils (%) (Auto) 1.2H, Neutrophils # (Auto) 2.6, Lymphocytes # (Auto) 1.9, Monocytes # (Auto) 0.4, Eosinophils # (Auto) 0.2, Basophils # (Auto) 0.1, Nucleated Red Blood Cells % (auto) 0.0, Anion Gap 10, Glomerular Filtration Rate > 60.0, Blood Urea Nitrogen 8, Creatinine 1.15, Sodium Level 142, Potassium Level 3.5, Chloride Level 106, Carbon Dioxide Level 26, Calcium Level 8.4L, Aspartate Amino Transf (AST/SGOT) 212H, Alanine Aminotransferase (ALT/SGPT) 203H, Alkaline Phosphatase 133H, Total Bilirubin 1.0, Total Protein 6.8, Albumin 3.2, Albumin/Globulin Ratio 0.89L CBC/BMP Laboratory Tests 07/17/18 05:14 Red Blood Count 4.04 L, Mean Corpuscular Volume 93.1, Mean Corpuscular Hemoglobin 32.4, Mean Corpuscular Hemoglobin Concent 34.8, Red Cell Distribution Width 13.5, Neutrophils (%) (Auto) 50.2, Lymphocytes (%) (Auto) 36.9, Monocytes (%) (Auto) 7.5 H, Eosinophils (%) (Auto) 2.9, Basophils (%) (Auto) 1.2 H, Neutrophils # (Auto) 2.6, Lymphocytes # (Auto) 1.9, Monocytes # (Auto) 0.4, Eosinophils # (Auto) 0.2, Basophils # (Auto) 0.1, Calcium Level 8.4 L, Aspartate Amino Transf (AST/SGOT) 212 H, Alanine Aminotransferase (ALT/SGPT) 203 H, Alkaline Phosphatase 133 H, Total Bilirubin 1.0, Total Protein 6.8, Albumin 3.2 Discharge Medications Scheduled Amlodipine Besylate (Amlodipine Besylate) 5 Mg Tablet, 5 MG PO DAILY Folic Acid (Folic Acid) 1 Mg Tablet, 1 MG PO DAILY Multivitamin (Multivitamins) 1 Each Capsule, 1 CAP PO DAILY Thiamine Hcl (Vitamin B-1) 100 Mg Tablet, 100 MG PO DAILY Scheduled PRN Acetaminophen (Acetaminophen) 325 Mg Tablet, 650 MG PO Q4H PRN for PAIN, (Reported) Allergies Coded Allergies: No Known Allergies (Unverified , 07/14/18) JORDON ABDI MD Jul 17, 2018 10:37
--- NOTE | 2018-07-18 18:52 | EEG ---
DATE OF PROCEDURE: REFERRING PHYSICIAN: Dr. Pietro Little DIAGNOSIS: Episode of loss of consciousness, rule out seizure. 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 The patient has been consuming several high-energy drinks. The patient passed out for 10 seconds. He woke up in the ambulance. There was no urinary incontinence or tongue biting. This EEG was done to rule out epileptic potential. He is currently taking multivitamin, thiamine, folic acid, Ativan, oxazepam, etc. TECHNICAL DESCRIPTION: This digital EEG was recorded by 21 scalp, ear and two EKG electrodes and was reviewed in bipolar and referential montages following reformatting in 10-20 international electrode placement system. INTERPRETATION: The patient was noted to be in awake and drowsy states during this EEG. Resting awake background rhythm consisted of 10 Hz alpha activity measuring 15-40 microvolts in amplitude, which was symmetric and reactive to eye opening. Anteriorly low voltage and mixed frequency activity was noted. Attenuation of posterior dominant rhythm was seen during transition into drowsiness. Stage I and II sleep were reviewed and were symmetric bilaterally. Hyperventilation and photic stimulation remained unremarkable. EKG revealed normal sinus rhythm. No focal, lateralizing or epileptiform abnormalities were seen. No electrographic seizures were noted. CONCLUSION: This EEG in awake, drowsy states, stage I and II sleep is within normal limits. MTDD
== END 2018-07-17 12:25 | disposition home or self-care (01) | DRG 683 ==
LOC: M ED 21:52 → M ED INP 07-16 00:05 → M MSPAV 07-16 01:05
PROVIDERS: ADMIT Internal Medicine Nephrology; ATTEND Internal Medicine
DX: N17.9 Acute kidney failure, unspecified (principal); E87.2 Acidosis; E87.1 Hypo-osmolality and hyponatremia; I95.1 Orthostatic hypotension; E87.6 Hypokalemia; R29.818 Other symptoms and signs involving the nervous system; R74.8 Abnormal levels of other serum enzymes; F10.10 Alcohol abuse, uncomplicated; K75.9 Inflammatory liver disease, unspecified

== ENCOUNTER 2019-01-06 07:11 | Emergency (ER) | payer OTHER ==
[~2019-01-06] VITALS: Ht 182.9 cm; Wt 115.9 kg
[~2019-01-06 07:11] MED LIST changes: +AMLO5TAB6 PO; +APAP325T4 PO; +CYCL10TA PO; +FOLI1TAB11 PO; +MULTCAP PO; +THIA100TA PO
[2019-01-06] MEDS ORDERED: OXYC1TAB23 PO (07:21)
[2019-01-06] MEDS ORDERED: TRAZ1TAB11 PO (07:21)
--- NOTE | 2019-01-06 08:32 | REP ---
CT brain without contrast: History: Question of seizure. Comparison brain MRI study July 16, 2018. 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 Bone window settings demonstrate an intact bony calvarium. On soft tissue window settings, lateral, third, and fourth ventricles are normal in size and position. Jaramillo-white differentiation pattern is normal above below the tentorium. There is no evidence of intracranial hemorrhage. No infarct, mass, extra-axial fluid collection, or midline shift is seen. Impression: Negative noncontrast brain CT. Electronically Signed by Denilson Rodriguez MD 01/06/2019 08:24 A
[2019-01-06 08:34] LABS: BASO % 0.5 % (0.0-1.0); EOS % 0.3 % (0.0-3.0); HEMATOCRIT 38.8 % (42.0-52.0); HEMOGLOBIN 14.2 g/dl (13.5-17.5); LYMPH # 0.4 10^3/uL (1.5-5.0); LYMPH % 11.2 % (24.0-44.0); MEAN CORPUSCULAR HEMOGLOBIN 34.3 pg (27.0-33.0); MEAN CORPUSCULAR HGB CONC 36.6 g/dl (32.0-36.5); MEAN CORPUSCULAR VOLUME 93.7 fl (80.0-96.0); MONO # 0.5 10^3/uL (0.0-0.8); MONO % 12.3 % (0.0-5.0); NEUTROPHILS # 2.8 10^3/uL (1.5-8.5); NEUTROPHILS % 75.4 % (36.0-66.0); RED BLOOD COUNT 4.14 10^6/uL (4.30-6.10); WHITE BLOOD COUNT 3.7 10^3/uL (4.0-10.0)
[2019-01-06 08:51] LABS: ALBUMIN 4.6 GM/DL (3.2-5.2); ALT/SGPT 241 U/L (12-78); BILIRUBIN,TOTAL 2.2 MG/DL (0.2-1.0); BLOOD UREA NITROGEN 9 MG/DL (7-18); CALCIUM LEVEL 9.4 MG/DL (8.5-10.1); CARBON DIOXIDE LEVEL 25 MEQ/L (21-32); CHLORIDE LEVEL 98 MEQ/L (98-107); CREATININE FOR GFR 1.16 MG/DL (0.70-1.30); GLOMERULAR FILTRATION RATE > 60.0 (>60); GLUCOSE, FASTING 110 MG/DL (70-100); POTASSIUM SERUM 3.6 MEQ/L (3.5-5.1); SODIUM LEVEL 134 MEQ/L (136-145); TOTAL PROTEIN 8.3 GM/DL (6.4-8.2)
[2019-01-06 08:58] LABS: PLATELET COUNT, AUTOMATED 80 10^3/uL (150-450)
[2019-01-06] MEDS ORDERED: EEG (08:58)
[2019-01-06 11:25] LABS: AMPHETAMINES LEVEL URINE NEGATIVE (NEGATIVE); BARBITURATES URINE NEGATIVE (NEGATIVE); BENZODIAZEPINES URINE NEGATIVE (NEGATIVE); CANNABINOIDS URINE NEGATIVE (NEGATIVE); COCAINE METABOLITE URINE NEGATIVE (NEGATIVE); METHADONE URINE NEGATIVE (NEGATIVE); OPIATES URINE NEGATIVE (NEGATIVE); PHENCYCLIDINE URINE NEGATIVE (NEGATIVE)
[2019-01-06 12:00] VITALS: BP 147/92
--- NOTE | 2019-01-08 07:55 | ECGEPIP ---
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
== END 2019-01-06 12:09 | disposition home or self-care (01) ==
LOC: M ED 07:11
DX: R56.9 Unspecified convulsions (principal)

== ENCOUNTER 2019-03-07 17:42 | Emergency (ER) | payer OTHER ==
[~2019-03-07] VITALS: Ht 182.9 cm; Wt 113.0 kg
[~2019-03-07 17:42] MED LIST changes: +EEG; +OXYC1TAB23 PO; +TRAZ1TAB11 PO
[2019-03-07] MEDS ORDERED: NS 1,000 ML IV ONE (18:15)
[2019-03-07] MEDS ORDERED: NORV5TAB PO (18:34)
[2019-03-07] MEDS ORDERED: TRAZ-252 PO (18:34)
[2019-03-07] MEDS ORDERED: THIA100T7 PO (18:34)
[2019-03-07] MEDS ORDERED: MM S100C PO (18:34)
[2019-03-07] MEDS ORDERED: CYCL10TA PO (18:34)
[2019-03-07] MEDS ORDERED: NAPR-885 PO (18:34)
[2019-03-07] MEDS ORDERED: FOLI1TAB11 PO (18:34)
[2019-03-07] MEDS ORDERED: IBUP1TAB7 PO (18:34)
[2019-03-07 18:41] LABS: HEMATOCRIT 46.1 % (42.0-52.0); HEMOGLOBIN 15.9 g/dl (13.5-17.5); MEAN CORPUSCULAR HEMOGLOBIN 33.3 pg (27.0-33.0); MEAN CORPUSCULAR HGB CONC 34.5 g/dl (32.0-36.5); MEAN CORPUSCULAR VOLUME 96.4 fl (80.0-96.0); PLATELET COUNT, AUTOMATED 192 10^3/uL (150-450); RED BLOOD COUNT 4.78 10^6/uL (4.30-6.10)
[2019-03-07] MEDS ORDERED: SERO1TAB3 PO (18:47)
[2019-03-07] MEDS ORDERED: THIAMINE 100 MG TAB PO ONE (19:15)
[2019-03-07 19:19] LABS: ACETAMINOPHEN LEVEL < 2.0 UG/ML (10.0-30.0); ALBUMIN 4.3 GM/DL (3.2-5.2); ALT/SGPT 270 U/L (12-78); BILIRUBIN,DIRECT 0.2 MG/DL (0.0-0.2); BILIRUBIN,TOTAL 0.5 MG/DL (0.2-1.0); BLOOD UREA NITROGEN 8 MG/DL (7-18); CALCIUM LEVEL 8.4 MG/DL (8.5-10.1); CARBON DIOXIDE LEVEL 27 MEQ/L (21-32); CHLORIDE LEVEL 113 MEQ/L (98-107); ETHYL ALCOHOL (ETHANOL) 0.387 % (0.000-0.010); GLOMERULAR FILTRATION RATE > 60.0 (>60); GLUCOSE, FASTING 93 MG/DL (70-100); POTASSIUM SERUM 3.7 MEQ/L (3.5-5.1); SALICYLATE LEVEL < 1.7 MG/DL (5.0-30.0); SODIUM LEVEL 146 MEQ/L (136-145); THYROID STIMULATING HORMONE 0.287 uIU/ML (0.358-3.740); TOTAL PROTEIN 8.2 GM/DL (6.4-8.2)
[2019-03-07 19:20] LABS: AMPHETAMINES LEVEL URINE NEGATIVE (NEGATIVE); BARBITURATES URINE NEGATIVE (NEGATIVE); BENZODIAZEPINES URINE NEGATIVE (NEGATIVE); CANNABINOIDS URINE NEGATIVE (NEGATIVE); COCAINE METABOLITE URINE NEGATIVE (NEGATIVE); METHADONE URINE NEGATIVE (NEGATIVE); OPIATES URINE NEGATIVE (NEGATIVE); PHENCYCLIDINE URINE NEGATIVE (NEGATIVE)
[2019-03-08 01:23] LABS: BILIRUBIN,DIRECT 0.2 MG/DL (0.0-0.2); BILIRUBIN,TOTAL 0.5 MG/DL (0.2-1.0); ETHYL ALCOHOL (ETHANOL) 0.277 % (0.000-0.010); TOTAL PROTEIN 7.4 GM/DL (6.4-8.2)
[2019-03-08 13:42] VITALS: BP 186/92
--- NOTE | 2019-03-08 15:36 | ECGEPIP ---
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
== END 2019-03-08 13:43 | disposition home or self-care (01) ==
LOC: EDBD 17:42 → M ED 17:42
DX: F43.0 Acute stress reaction (principal); I44.0 Atrioventricular block, first degree; I10 Essential (primary) hypertension; G47.00 Insomnia, unspecified; G56.20 Lesion of ulnar nerve, unspecified upper limb; Z79.899 Other long term (current) drug therapy
CPT/HCPCS: 80048; 80076; 80307; 84443; 85027; 93005; 93041; 94760; 99285; G0480